=== PATIENT | female | born 1970 | race Caucasian/White ===

== ENCOUNTER 2018-07-26 23:04 | Emergency (ER) | payer MEDICAID ==
[~2018-07-26] VITALS: Ht 162.6 cm; Wt 92.3 kg
[2018-07-26 23:11] VITALS: Ht 162.6 cm; Wt 92.3 kg
[2018-07-26] MEDS ORDERED: LISINOPRIL10 MG PO (23:13)
[2018-07-26] MEDS ORDERED: XANAX0.25 MG PO (23:13)
[2018-07-26] MEDS ORDERED: SYNTHROID25 MCG (23:13)
[2018-07-26] MEDS ORDERED: HYDROCHLOROTHIA25 MG PO (23:13)
[2018-07-27] MEDS ORDERED: BACTRIM DS1 TAB PO (00:33)
[2018-07-27 00:53] VITALS: BP 128/78
== END 2018-07-27 00:54 | disposition home or self-care (01) ==
LOC: D.ER 23:04
DX: J02.9 Acute pharyngitis, unspecified (principal); I10 Essential (primary) hypertension; F17.200 Nicotine dependence, unspecified, uncomplicated

== ENCOUNTER 2018-08-24 19:26 | Emergency (ER) | payer MEDICAID ==
[~2018-08-24] VITALS: Ht 162.6 cm; Wt 90.9 kg
[~2018-08-24 19:26] MED LIST: BACTRIM DS1 TAB PO; HYDROCHLOROTHIA25 MG PO; LISINOPRIL10 MG PO; SYNTHROID25 MCG; XANAX0.25 MG PO
[2018-08-24 19:32] VITALS: Ht 162.6 cm; Wt 90.9 kg
[2018-08-24] MEDS ORDERED: CYCLOBENZAPRINE10 MG PO (20:05)
[2018-08-24] MEDS ORDERED: NAPROSYN500 MG PO (20:05)
[2018-08-24 20:23] VITALS: BP 130/72
== END 2018-08-24 20:23 | disposition home or self-care (01) ==
LOC: D.ER 19:26
DX: S16.1XXA Strain of muscle, fascia and tendon at neck level, initial encounter (principal); X50.0XXA Overexertion from strenuous movement or load, initial encounter; Y93.89 Activity, other specified; Y92.019 Unspecified place in single-family (private) house as the place of occurrence of the external cause; I10 Essential (primary) hypertension; F17.200 Nicotine dependence, unspecified, uncomplicated